=== PATIENT | female | born 1935 | race Caucasian/White ===

== ENCOUNTER → 2017-01-03 | Outpatient (CLI) | payer MEDICARE, OTHER ==
[~2017-01-03] MED LIST: ASPIRIN PO; ATENOLOL PO; BACTRIM DS TABL1 TAB PO; CLARITIN10 M1 PO; CLARITIN10 M3 PO; CRESTOR40 MG PO; DIOVAN HCT 3201 EAC1 PO; DIOVAN PO; FLUOROMETHOLONE5 M1 OP; FORTEO750 MCG/3 INJ; ISORDIL PO; NEXIUM PO; OYSTER CALCIUM500 MG PO; PROTONIX PO; RESTASIS32 EA OP; SONATA5 MG PO; VAGIFEM25 MCG PO; [UNRECOGNIZED DRUG - OTHER] PO
--- NOTE | ~2017-01-03 | MY30 ---
[facility] A Service Community [facility] RADIOLOGY TEXT RESULTS PATIENT: SOTO JACKSON LOCATION: [facility] ACC #: [id number] : 31 UNIT #: [id number] AGE: [address]: Michael Limon MD SEX: F ORDER DR: [id number] [place] [id number] O MR#: [id number] Acc #: [id number] NAME: SOTO JACKSON : 1935 SEX: F STUDY DATE/TIME: 01/03/2017 11:03 UNIT: [facility] ROOM: STUDY DESCRIPTION: MY SCREEN SHALOM BILAT DIGITAL Attending Physician: Michael Limon M.D. Referring Physician: Michael Limon M.D. Ordering Physician: Michael Limon M.D. Primary Care Physician: Michael Limon M.D. MEDICAL IMAGING REPORT This report is preliminary unless electronic signature is present. EXAMINATION Bilateral digital screening mammogram with CAD. DATE 01/03/2017 HISTORY Benign left breast biopsy many years ago. No personal or family history of breast cancer or current complaints. COMPARISON Bilateral screening mammogram 01/01/2016, 10/29/2014, 10/07/2013. FINDINGS CC and MLO views were obtained of each breast utilizing digital technique and reviewed with an FDA-approved CAD device. FINDINGS Scattered fibroglandular densities are present bilaterally. No suspicious nodule, architectural distortion or clustered microcalcifications seen. IMPRESSION BIRADS 1. Negative screening mammogram. Routine miles screening mammogram recommended in one year. Patients over the age of 40 are entered into a reminder system with target due date for the next mammogram. A result letter will also be sent to the patient. BIRADS: 1 Negative. [facility] A Service Community [facility] RADIOLOGY TEXT RESULTS PATIENT: SOTO JACKSON LOCATION: [facility] : 33 UNIT #: [id number] AGE: [address]: Micahel Limon MD SEX: F ORDER DR: Dictated by... Verito Vargas M.D. THIS IS AN ELECTRONICALLY VERIFIED REPORT Verito Vargas M.D. at 01/06/2017 8:34 AM DONALD/terri TD: 01/03/2017 21:51 JOB #: [id number] MEDICAL IMAGING REPORT Page 1 of 1
== END | disposition home or self-care (01) ==
LOC: SMAM 10:21
DX: Z12.31 Encounter for screening mammogram for malignant neoplasm of breast (principal); Z98.890 Other specified postprocedural states; Z91.89 Other specified personal risk factors, not elsewhere classified
CPT/HCPCS: G0202

== ENCOUNTER 2017-01-04 14:47 | Emergency (ER) | payer MEDICARE, OTHER ==
[~2017-01-04] VITALS: Ht 157.5 cm; Wt 54.4 kg
--- NOTE | ~2017-01-04 | CT23 ---
[facility] A Service of [facility] & [facility] RADIOLOGY TEXT RESULTS PATIENT: SOTO JACKSON LOCATION: [facility] : 33 UNIT #: [id number] AGE: [address]: Matthieu Thomas MD SEX: F ORDER DR: [id number] [facility] [address] [place], [place] [address] [id number] E MR#: [id number] Acc #: [id number] NAME: SOTO JACKSON : 1935 SEX: F STUDY DATE/TIME: 01/04/2017 16:46 UNIT: [facility] ROOM: STUDY DESCRIPTION: CT Angio Neck Attending Physician: Matthieu Thomas M.D. Ordering Physician: Matthieu Thomas M.D. Primary Care Physician: Michael Limon M.D. MEDICAL IMAGING REPORT This report is preliminary unless electronic signature is present EXAM CT angiogram head and neck with IV contrast. HISTORY Blurred vision since yesterday in right eye. FINDINGS Result text under order number [id number]. Please see this order for result text. Dictated by... Len Duran M.D. THIS IS AN ELECTRONICALLY VERIFIED REPORT Len Duran M.D. at 01/05/2017 11:39 PM DFL/claus TD: 01/05/2017 11:30 JOB #: [id number] MEDICAL IMAGING REPORT Page 1 of 1 COPY
--- NOTE | ~2017-01-04 | EKG ---
PATIENT: SOTO JACKSON UNIT #: [id number] Ventricular Rate: 64 BPM Atrial Rate: 64 BPM P-R Interval: 190 ms QRS Duration: 68 ms Q-T Interval: 432 ms QTC Calculation(Bezet): 445 ms P [place]: 51 degrees Calculated T [place]: 16 degrees Diagnosis Line: Sinus rhythm with Premature atrial complexes Diagnosis Line: Septal infarct (cited on or before 04-JAN-2017) Diagnosis Line: Abnormal ECG Diagnosis Line: When compared with ECG of 26-APR-2014 11:34, Diagnosis Line: Premature atrial complexes are now Present Diagnosis Line: Questionable change in initial forces of Septal Diagnosis Line: leads Diagnosis Line: Confirmed by FAYE ROBERTSON MD ([id number]) on Diagnosis Line: 01/06/2017 11:31:25 AM INTERPRETING MD: AILYN LAYTON
--- NOTE | ~2017-01-04 | CT71 ---
[facility] A Service of [facility] & [facility] RADIOLOGY TEXT RESULTS PATIENT: SOTO JACKSON LOCATION: [facility] : 33 UNIT #: [id number] AGE: [address]: Matthieu Thomas MD SEX: F ORDER DR: [id number] [facility] [address] [place], [place] [address] [id number] E MR#: [id number] Acc #: [id number] NAME: SOTO JACKSON. : 1935 SEX: F STUDY DATE/TIME: 01/04/2017 16:41 UNIT: [facility] ROOM: STUDY DESCRIPTION: CT Head Wo Contrast Attending Physician: Matthieu Thomas M.D. Ordering Physician: Matthieu Thomas M.D. Primary Care Physician: Michael Limon M.D. MEDICAL IMAGING REPORT This report is preliminary unless electronic signature is present EXAM CT head 01/04/17 HISTORY Right eye blurred vision since last night. Went to eye doctor and sent here for further evaluation. States on Plavix for history of heart valve replacement. States a piece of cholesterol broke off behind my right eye and my doctor wants to make sure there are not any more anywhere else. The CT exam was performed with one or more of the following radiation dose reduction techniques: automatic exposure control, adjustment of mA and/or kV according to patient size, and iterative reconstruction. FINDINGS CT performed skull base to vertex without intravenous contrast. COMPARISON: 04/26/14 Brain stem unremarkable. Cerebellum and cerebral hemispheres show overall preservation of jordan matter-white matter differentiation. Some images degraded by streak/motion artifact. There are periventricular and deep white matter tract hypodensities bilaterally likely reflecting sequela of chronic microvascular ischemia and more pronounced than n 2014. Multifocal bilateral basal ganglia lacunar infarcts. Largest on the left involves portions of the caudate nucleus head, anterior limb internal capsule and putamen and measures up to approximately 1.7 cm x 8 to 9 mm. There are multiple small right caudate nucleus and putamen lacunar infarcts. The largest of these in the posterior right putamen measures on the order of about 3 mm. There is no clearly acute basal ganglia abnormality. The midline structures are nondisplaced. The ventricles, cisterns and sulci show mild generalized atrophy enlargement consistent with generalized atrophy. Similar to prior examination. There are STS. [facility] A Service of [facility] & [facility] RADIOLOGY TEXT RESULTS PATIENT: SOTO JACKSON LOCATION: [facility] : 33 UNIT #: [id number] AGE: [address]: Matthieu Thomas MD SEX: F ORDER DR: cavernous carotid and distal vertebral arterial calcifications. No intra or extraaxial mass effect or abnormal intracranial fluid collection. Visualized intraorbital soft tissues show no acute abnormality. No fracture. Visualized paranasal sinuses and mastoid air cells clear. IMPRESSION 1. No clearly acute abnormality is seen in the brain. If the patient has ongoing neurologic symptoms, consider followup imaging, preferably with MRI if patient is a candidate. 2. Periventricular and deep white matter tract hypodensities bilaterally likely reflecting sequela of chronic microvascular ischemia. More pronounced than on comparison [id number]. 3. Multifocal chronic appearing bilateral basal ganglia lacunar infarcts. See complete discussion above. The largest of these is in the left caudate nucleus head with extension into anterior limb internal capsule and left putamen measuring about 1.7 cm x 8 to 9 mm. There is no clearly acute basal ganglia abnormality. 4. Mild generalized atrophy. 5. Prominent vascular calcifications. Dictated by... Truman Nichole M.D. THIS IS AN ELECTRONICALLY VERIFIED REPORT Truman Nichole M.D. at 01/06/2017 2:31 PM Erika TD: 01/05/2017 10:32 JOB #: [id number] MEDICAL IMAGING REPORT Page 1 of 1 COPY
--- NOTE | ~2017-01-04 | CT17 ---
[facility] A Service of [facility] & [facility] RADIOLOGY TEXT RESULTS PATIENT: SOTO JACKSON LOCATION: [facility] : 31 UNIT #: [id number] AGE: [address]: Matthieu Thomas MD SEX: F ORDER DR: [id number] [facility] [address] [place], [place] [address] [id number] E MR#: [id number] [facility] #: [id number] NAME: SOTO JACKSON. : 1935 SEX: F STUDY DATE/TIME: 01/04/2017 16:46 UNIT: [facility] ROOM: STUDY DESCRIPTION: CT Angio Head Attending Physician: Matthieu Thomas M.D. Ordering Physician: Matthieu Thomas M.D. Primary Care Physician: Michael Limon M.D. MEDICAL IMAGING REPORT This report is preliminary unless electronic signature is present REVISED REPORT EXAM CT angiogram head and neck with IV contrast. HISTORY Blurred vision since yesterday in right eye. FINDINGS IV contrast enhanced CT angiogram of the head and neck was performed with 3-D reconstructions. This CT exam was performed with one or more of the following radiation dose reduction techniques: automatic exposure control, adjustment of mA and/or kV according to patient size, and iterative reconstruction. CT ANGIOGRAM NECK. Mild emphysema in the lung apices. Moderate stenosis in the proximal left subclavian artery 3 cm from its origin secondary to calcified plaque resulting in approximately 40% narrowing. There is also mild calcified plaque in the proximal internal carotid arteries bilaterally, but no hemodynamically significant carotid artery stenosis by NASCET criteria. Approximately 10% narrowing in the proximal internal carotid arteries bilaterally. Both vertebral arteries are patent with [id number] atherosclerotic calcified plaque at the origins of the vertebral arteries bilaterally causing mild narrowing at the origin of the right vertebral artery and moderate narrowing at the origin of the left vertebral artery. Dominant left vertebral artery and hypoplastic right vertebral artery. CT ANGIOGRAM BRAIN. Hypoplastic intracranial right vertebral artery and dominant left intracranial vertebral artery are patent with no focal stenosis. The [facility] A Service of [facility] & [facility] RADIOLOGY TEXT RESULTS PATIENT: SOTO JACKSON [id number] : [birth year] UNIT #: [id number] AGE: [address]: Matthieu Thomas MD SEX: F ORDER DR: basilar artery is patent. The right A1 segment is not visualized and could be developmentally hypoplastic or absent. Dominant left A1 segment and patent anterior communicating artery supply the A2 segments bilaterally. The A2 segments are widely patent. The right middle cerebral artery is also widely patent. Moderate stenosis of the origin of the superior left M2 segment. Moderate short-segment stenosis of the mid right P1 segment. The left P1 segment and the P2 segments are widely patent bilaterally. IMPRESSION 1. No hemodynamically significant cervical carotid artery stenosis by NASCET criteria. 2. 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 3. Calcified plaque at the origins of the vertebral arteries bilaterally causing mild narrowing at the origin of the right vertebral artery and moderate narrowing at the origin of the left vertebral artery. 4. Absent or hypoplastic right A1 segment with patent anterior communicating artery supplying the A2 segment on the right and dominant left A1 segment. 5. Short-segment atherosclerotic stenoses in the right P1 segment and in the proximal superior left M2 segment. 6. Hypoplastic right vertebral artery. Dictated by... Len Duran M.D. THIS IS AN ELECTRONICALLY VERIFIED REPORT Len Duran M.D. at 01/05/2017 11:35 PM DFDaniel/claus TD: 01/05/2017 11:28 JOB #: [id number] CC: Lillian/invision Please Delete MEDICAL IMAGING REPORT Page 1 of 1 COPY
[2017-01-04 15:54] LABS: BASOPHIL% 0.3 % (0-2.5); EOSINOPHIL# 0.1 X10e3 (0-0.7); EOSINOPHIL% 0.7 % (0.0-7.0); HEMATOCRIT 37.2 % (35.0-45.0); HEMOGLOBIN 12.9 gm/dL (12.0-16.0); LYMPHOCYTE# 0.6 X10e3 (1.0-3.5); LYMPHOCYTE% 7.9 % (17.0-45.0); MEAN CELL VOLUME 91.1 FL (83-96); MEAN CORPUSCULAR HEMOGLOBIN 31.6 PG (28-34); MEAN CORPUSCULAR HGB CONC 34.7 g/dL (30-36); MEAN PLATELET VOLUME 7.5 FL (6.5-11.5); MONOCYTE# 0.5 X10e3 (0-1.0); MONOCYTE% 7.3 % (3.0-12.0); NEUTROPHIL# 6.2 X10e3 (1.5-7.1); NEUTROPHIL% 83.8 % (40-75); PLATELET COUNT 193 X10e3 (140-420); RED BLOOD COUNT 4.08 X10e (3.90-5.30); RED CELL DISTRIBUTION WIDTH 13.8 % (11.0-15.5); WHITE BLOOD COUNT 7.4 X10e3 (4.0-10.5)
[2017-01-04 15:57] LABS: DIFF IND NO
[2017-01-04 16:07] LABS: PARTIAL THROMBOPLASTIN TIME 28.5 SECONDS (23.5-31.3); PROTHROMBIN TIME (PATIENT) 10.6 SECONDS (10.0-11.7)
[2017-01-04 16:20] LABS: ALBUMIN SERUM 4.4 g/dL (3.5-5.0); BILIRUBIN, DIRECT 0.1 mg/dL (0.0-0.2); BILIRUBIN,INDIRECT 0.7 mg/dL (0.0-0.9); BILIRUBIN,TOTAL 0.8 mg/dL (0.2-2.0); BUN/CREATININE RATIO 32.85; CALCIUM SERUM 9.4 mg/dL (8.4-10.2); CREATININE SERUM 0.7 mg/dL (0.6-1.4); GLOM FILT RATE Estimated 80.1 mL/min (>60); POTASSIUM 4.3 mmol/L (3.5-5.1); PROTEIN TOTAL SERUM 7.7 g/dL (6.0-8.3)
[2017-01-04 16:55] LABS: POC - CKMB 1.5 ng/mL (0.0-7.9); POC - TROPONIN <0.05 ng/mL (<=0.05)
== END 2017-01-04 18:45 | disposition home or self-care (01) ==
LOC: CED 14:47
PROVIDERS: Emergency Medicine
DX: H53.40 Unspecified visual field defects (principal); I10 Essential (primary) hypertension; E78.5 Hyperlipidemia, unspecified; K21.9 Gastro-esophageal reflux disease without esophagitis; Z88.8 Allergy status to other drugs, medicaments and biological substances; Z79.899 Other long term (current) drug therapy
CPT/HCPCS: 70450; 70496; 70498; 80048; 80076; 82553; 84484; 85025; 85610; 85730; 93005; 99284; Q9967